=== PATIENT | female | born 1955 | race Caucasian/White ===

== ENCOUNTER 2016-06-24 11:29 | Day surgery (SDC) | payer MEDICARE, SELFPAY ==
[~2016-06-24 11:29] MED LIST: ALLEGRA-D 12 H1 EACH PO; AMITRIPTYLINE H50 M1 PO; ANTIBIOTIC PO; ARIMIDEX1 M1 PO; ARISTADA882 MG/3.2 IM; ASPIRIN EC81 MG PO; ATIVAN0.5 M1 PO; ATIVAN2 M1 PO; B-COMPLEX PLUS1 EAC1 PO; BELSOMRA20 MG PO; BENADRYL25 M3 PO; BENTYL20 M1 PO; BENTYL20 MG PO; BETAMETHASONE V15 G3 TOP; CALCIUM-MAGNES1 EAC8 PO; CEFDINIR300 M1 PO; CETIRIZINE HCL10 M1 PO; CHOLESTYRAMINE P4 GM PO; CLINDAMYCIN HC150 M1 PO; CLONIDINE HCL0.1 M2; CLONIDINE HCL0.1 M2 PO; CLONIDINE HCL0.2 M1 PO; CYCLOBENZAPRINE10 M1 PO; CYMBALTA20 MG PO; DAILY MULTIVIT1 EAC1 PO; FETZIMA120 MG PO; FLORAJEN PO; GABAPENTIN300 MG PO; HYDROCHLOROTHIA25 MG PO; HYOSCYAMINE0.125 M4 SL; HYOSCYAMINE0.375 M3 PO; IBUPROFEN200 M2 PO; INDERAL PO; K-TAB ER20 ME1 PO; LAMICTAL200 M1 PO; LASIX20 M1 PO; LASIX40 M1 PO; LEVSIN-SL0.125 MG SL; LISINOPRIL40 M1 PO; LOPRESSOR100 M1 PO; MAGNESIUM OXID400 M1 PO; MAGOX 400400 M1 PO; MECLIZINE HCL25 M3 PO; MIRALAX17 G2 PO; MUCINEX600 M1 PO; NASAL SPRAY30 M3; NEURONTIN300 M1 PO; NORCO 5-325 TA1 EACH PO; NYSTATIN15 G1 TP; OMEGA 3 1,0001 EAC1 PO; OMEPRAZOLE20 M3 PO; PRILOSEC OTC20 M1 PO; PROAIR HFA8.5 GM INH; PROBIOTIC1 EAC4 PO; QUETIAPINE FUM100 M1 PO; REQUIP4 M1 PO; RESTORIL15 M1 PO; RESTORIL30 M1 PO; ROPINIROLE HCL4 M2 PO; ROXICODONE5 M2 PO; SIMETHICONE80 M3 PO; SIMVASTATIN20 M1 PO; SUPER B COMPLE150 M1 PO; TRAMADOL HCL50 M2 PO; TRAZODONE HCL100 M1 PO; TRIAMTERENE-HC1 EAC3 PO; TRILIPIX135 MG PO; TYLENOL EXTRA500 M1 PO; VANCOMYCIN HCL125 M1 PO; VITAMIN C1000 M1 PO; VITAMIN D31000 UNI3 PO; ZOCOR20 M1 PO; ZOFRAN ODT8 MG PO; ZOFRAN4 MG PO; ZOFRAN8 M1 PO; ZYRTEC1010 PO; [UNRECOGNIZED DRUG - OTHER] PO
[2016-10-07] MEDS ORDERED: NIASPAN500 M1 PO (19:37)
[2016-10-07] MEDS ORDERED: COZAAR50 M1 PO (19:39)
[2016-10-07] MEDS ORDERED: VITAMIN D350000 UNI1 PO (19:43)
[2016-10-07] MEDS ORDERED: MAGNESIUM OIL (19:45)
[2016-10-07] MEDS ORDERED: ASPERCREME 1035.4 GM TP (19:47)
[2016-10-07] MEDS ORDERED: ORAJEL (19:48)
[2016-10-07] MEDS ORDERED: ARIMIDEX1 M1 PO (19:49)
[2016-10-07] MEDS ORDERED: ZOFRAN4 M2 PO (21:13)
[2016-10-07] MEDS ORDERED: DICYCLOMINE HCL20 M1 PO (21:13)
[2016-10-24] MEDS ORDERED: BIOTIN10000 MC1 (09:56)
[2016-10-24] MEDS ORDERED: CALCIUM MAGNES1 EAC2 PO (09:56)
[2016-10-24] MEDS ORDERED: HYOSCYAMINE0.375 M3 PO (09:58)
[2016-10-24] MEDS ORDERED: OVEGA-3 SOFTGE1 EAC1 PO (10:00)
[2016-10-24] MEDS ORDERED: VITAMIN C500 M3 PO (10:01)
[2016-10-24] MEDS ORDERED: VITAMIN D31000 UNI3 PO (10:02)
[2016-10-24] MEDS ORDERED: ZOFRAN4 M2 PO (10:04)
[2016-10-24] MEDS ORDERED: VRAYLAR1.5 MG PO (10:04)
[2016-10-24] MEDS ORDERED: HYDRALAZINE HCL25 M1 PO (10:05)
[2016-10-24] MEDS ORDERED: VITAMIN B12 INJ (10:09)
== END 2016-06-24 14:35 ==
LOC: ENDOS 11:29 → SHSC 11:30 → ENDOS 13:30
PROC: 0DJD8ZZ Inspection of Lower Intestinal Tract, Via Natural or Artificial Opening Endoscopic (ICD-10-PCS; principal; 2016-06-24)
DX: K64.8 Other hemorrhoids (principal); I10 Essential (primary) hypertension; M79.7 Fibromyalgia; G62.9 Polyneuropathy, unspecified; Z91.040 Latex allergy status; Z98.890 Other specified postprocedural states; E66.9 Obesity, unspecified; Z88.6 Allergy status to analgesic agent; Z88.2 Allergy status to sulfonamides; Z79.899 Other long term (current) drug therapy; Z90.710 Acquired absence of both cervix and uterus